=== PATIENT | female | born 1960 | race Caucasian/White ===

== ENCOUNTER 2021-04-10 10:59 | Inpatient (IN) ==
[2021-04-10] MEDS ORDERED: SODIUM CHLORIDE 0.9% 1,000 ML IV STA ×2 (12:47→14:59)
[2021-04-10 13:11] LABS: Basophils % 0.3 % (0.0-0.8); Eosinophils # 0.1 10*3/uL (0.0-0.87); Eosinophils % 1.3 % (0.00-10.9); Hematocrit 28.6 VOL% (35.7-47.0); Hemoglobin 8.4 GM/DL (12.0-16.0); Immature Granulocytes % 0.3 %; Immature Granulocytes Absolute 0.02 #; Lymphocytes # 0.3 10*3/uL (1.4-4.0); Lymphocytes % 4.4 % (21.3-54.2); Mean Corpuscular HGB Conc 29.4 GM/DL (32-36); Mean Corpuscular Volume 79.7 FL (87-102); Monocytes % 1.4 % (1.7-12.7); Neutrophils % 92.3 % (38.7-73.9); Platelet Count 243 T/CUMM (130-400); Red Blood Count 3.59 MC/CUMM (3.8-5.5); Red Cell Distribution Width 16.4 % (9.3-17.3); White Blood Count 6.4 T/CUMM (4-12)
[2021-04-10 13:40] LABS: Albumin 3.2 G/DL (3.4-5.0); Bilirubin,Total 1.3 MG/DL (0.20-1.00); Calcium 8.6 MG/DL (8.5-10.1); Osmolality,Calculated 281.7 MOS/KG (273-304); Potassium 3.8 MMOL/L (3.5-5.1); Total Protein 6.5 G/DL (6.4-8.2)
[2021-04-10 14:29] LABS: Bilirubin,Urine Negative (Negative); Blood, Urine Negative (Negative); Glucose,Urine (UA) Negative (Negative); Hyaline Casts,Urine 14 /LPF (0-3); Ketones,Urine Negative (Negative); Nitrite,Urine Negative (Negative); Protein,Urine Negative; RBC,Urine 1 /HPF (0-4); Squamous Epithelial Cell,Urine Occasional /HPF (0-10); Urine Appearance CLEAR (Clear); Urine Color Yellow (Yellow); Urine Specific Gravity 1.015 (1.001-1.035); Urine Urobilinogen < 2.0 EU/DL (<2.0)
[2021-04-10 14:33] LABS: Barbiturates Screen,Urine Positive (Negative); Benzodiazepines Screen,Urine Positive (Negative); Cannabinoid Screen,Urine Negative (Negative); Opiate Screen,Urine Negative (Negative); Phencyclidine Screen,Urine Negative (Negative)
[2021-04-10] MEDS ORDERED: VANCOMYCIN INJ 1,000 MG in SODIUM CHLORIDE 0.9% 250 ML IV STA ×2 (15:01→15:06)
[2021-04-10] MEDS ORDERED: cefTRIAXone 2,000 MG in SODIUM CHLORIDE 0.9% 100 ML IV ONE (15:01)
[2021-04-10] MEDS ORDERED: NOREPINEPHRINE 8 MG in SODIUM CHLORIDE 0.9% 242 ML IV PRN (15:10)
[2021-04-10 15:17] LABS: INR 1.1; PT Patient Result 12.4 SECS (10.5-12.0); Partial Thromboplastin Time 27.4 SECS (23.8-32.1)
[2021-04-10 15:22] LABS: Band Neutrophils 10 % (0-10); Eosinophils 6 % (0-10); Lymphocytes 3 % (20-55); Segmented Neutrophils 81 % (50-85); Total Cells Counted 100
[2021-04-10 15:23] LABS: Hypochromasia 4+; Microcytosis 2+; Platelet Estimate Normal
[2021-04-10] MEDS ORDERED: NOREPINEPHRINE 4 MG/4 ML VIAL IV ONE (15:43)
[2021-04-10] MEDS ORDERED: ALBUTEROL 2.5 MG/3 ML NEB RESP TX PRN (16:00)
[2021-04-10] MEDS ORDERED: ONDANSETRON 4 MG/2 ML VIAL IV PRN (16:00)
[2021-04-10] MEDS ORDERED: MEROPENEM 500 MG in SODIUM CHLORIDE 0.9% 100 ML IV SCH (16:30)
[2021-04-10] MEDS ORDERED: LEVOFLOXACIN INJ 500 MG/100 ML PREMIX IV ONE (16:30)
[2021-04-10] MEDS ORDERED: VANCOMYCIN INJ 500 MG in SODIUM CHLORIDE 0.9% 100 ML IV ONE (18:00)
[2021-04-10] MEDS: FAMOTIDINE 20 MG/2 ML VIAL IV SCH (18:43)
[2021-04-10] MEDS: methylPREDNISolone SOD SUC 40 MG/1 ML VIAL IV SCH (18:44)
[2021-04-10] MEDS: SODIUM CHLORIDE 0.9% 1,000 ML IV SCH (18:46)
[2021-04-10] MEDS: AMPICILLIN INJ 1,000 MG in SODIUM CHLORIDE 0.9% 100 ML IV SCH (19:54)
[2021-04-11] MEDS: methylPREDNISolone SOD SUC 40 MG/1 ML VIAL IV SCH ×4 (00:33→23:58)
[2021-04-11] MEDS ORDERED: VANCOMYCIN INJ 1,250 MG in SODIUM CHLORIDE 0.9% 250 ML IV SCH (01:00)
[2021-04-11] MEDS: AMPICILLIN INJ 1,000 MG in SODIUM CHLORIDE 0.9% 100 ML IV SCH ×2 (01:46→08:24)
[2021-04-11] MEDS ORDERED: cefTRIAXone 2,000 MG in SODIUM CHLORIDE 0.9% 100 ML IV SCH (03:00)
[2021-04-11] MEDS: SODIUM CHLORIDE 0.9% 1,000 ML IV SCH ×2 (03:24→11:24)
[2021-04-11] MEDS: FAMOTIDINE 20 MG/2 ML VIAL IV SCH ×2 (03:31→16:10)
[2021-04-11 04:00] LABS: ABG Base Excess -0.1 MMOL/L (-2.5-2.5); ABG HCO3 24.3 MMOL/L (20-26); ABG PCO2 38.4 MM HG (35-48); ABG TCO2 25.5 MMOL/L (23-27)
[2021-04-11 05:02] LABS: Basophils % 0.1 % (0.0-0.8); Hematocrit 29.1 VOL% (35.7-47.0); Hemoglobin 8.5 GM/DL (12.0-16.0); Immature Granulocytes % 0.4 %; Immature Granulocytes Absolute 0.05 #; Lymphocytes # 0.5 10*3/uL (1.4-4.0); Lymphocytes % 3.5 % (21.3-54.2); Mean Corpuscular HGB Conc 29.2 GM/DL (32-36); Mean Corpuscular Volume 80.2 FL (87-102); Mean Platelet Volume 9.7 FL (9.6-12.0); Platelet Count 253 T/CUMM (130-400); Red Blood Count 3.63 MC/CUMM (3.8-5.5); Red Cell Distribution Width 16.4 % (9.3-17.3); White Blood Count 13.6 T/CUMM (4-12)
[2021-04-11 05:28] LABS: Albumin 2.5 G/DL (3.4-5.0); Calcium 8.1 MG/DL (8.5-10.1); Osmolality,Calculated 287.1 MOS/KG (273-304); Potassium 3.6 MMOL/L (3.5-5.1); Thyroid Stimulating Hormone 0.433 uIU/ml (0.358-3.74)
[2021-04-11 05:34] LABS: Band Neutrophils 7 % (0-10); Hypochromasia 1+; Lymphocytes 5 % (20-55); Microcytosis 1+; Platelet Estimate Adequate; Segmented Neutrophils 88 % (50-85); Total Cells Counted 100
[2021-04-11] MEDS: cefTRIAXone 1,000 MG in SODIUM CHLORIDE 0.9% 100 ML IV SCH (12:28)
[2021-04-11] MEDS: FLUoxetine 20 MG CAPSULE PO SCH (12:28)
[2021-04-11] MEDS ORDERED: VANCOMYCIN INJ 1,000 MG in SODIUM CHLORIDE 0.9% 250 ML IV SCH ×2 (16:00)
[2021-04-11] MEDS: NAPROXEN 500 MG TABLET PO PRN ×2 (16:15→23:57)
[2021-04-11] MEDS ORDERED: LEVOFLOXACIN INJ 250 MG/50 ML PREMIX IV SCH (17:00)
[2021-04-11] MEDS: NORTRIPTYLINE 25 MG CAPSULE PO SCH (21:28)
[2021-04-11] MEDS: PREGABALIN 50 MG CAPSULE PO SCH (21:29)
[2021-04-11] MEDS: NABUMETONE 750 MG TABLET PO SCH (21:30)
[2021-04-11] MEDS: PRAMIPEXOLE 0.25 MG TABLET PO SCH (21:30)
[2021-04-11] MEDS ORDERED: NABUMETONE 500 MG TABLET PO SCH (21:30)
[2021-04-12] MEDS: cefTRIAXone 1,000 MG in SODIUM CHLORIDE 0.9% 100 ML IV SCH ×3 (00:12→23:23)
[2021-04-12] MEDS: FAMOTIDINE 20 MG/2 ML VIAL IV SCH ×2 (04:15→16:30)
[2021-04-12] MEDS: POTASSIUM CHLORIDE 10 MEQ TABLET PO SCH (08:34)
[2021-04-12] MEDS: FLUoxetine 20 MG CAPSULE PO SCH (08:35)
[2021-04-12] MEDS: FUROSEMIDE 40 MG TABLET PO SCH (08:35)
[2021-04-12] MEDS: PREGABALIN 50 MG CAPSULE PO SCH ×2 (08:35→23:16)
[2021-04-12] MEDS: CYANOCOBALAMIN 500 MCG TABLET PO SCH (08:35)
[2021-04-12] MEDS: methylPREDNISolone SOD SUC 40 MG/1 ML VIAL IV SCH ×2 (08:37→23:23)
[2021-04-12 08:53] LABS: Basophils % 0.1 % (0.0-0.8); Hematocrit 31.2 VOL% (35.7-47.0); Hemoglobin 9.2 GM/DL (12.0-16.0); Immature Granulocytes % 0.8 %; Immature Granulocytes Absolute 0.11 #; Lymphocytes % 6.8 % (21.3-54.2); Mean Corpuscular HGB Conc 29.5 GM/DL (32-36); Monocytes % 1.1 % (1.7-12.7); Neutrophils % 91.2 % (38.7-73.9); Platelet Count 318 T/CUMM (130-400); Red Blood Count 3.95 MC/CUMM (3.8-5.5); Red Cell Distribution Width 16.2 % (9.3-17.3); White Blood Count 14.2 T/CUMM (4-12)
[2021-04-12] MEDS ORDERED: amLODIPine 5 MG TABLET PO SCH (09:00)
[2021-04-12] MEDS: NABUMETONE 750 MG TABLET PO SCH (09:08)
[2021-04-12 09:13] LABS: Calcium 9.3 MG/DL (8.5-10.1); Hypochromasia 1+; Lymphocytes 2 % (20-55); Microcytosis 1+; Osmolality,Calculated 292.8 MOS/KG (273-304); Platelet Estimate Adequate; Potassium 3.7 MMOL/L (3.5-5.1); Segmented Neutrophils 95 % (50-85); Total Cells Counted 100
[2021-04-12] MEDS: atenoloL 50 MG TABLET PO SCH (14:28)
[2021-04-12] MEDS ORDERED: hydrALAZINE 20 MG/1 ML VIAL IV PRN (16:53)
[2021-04-12] MEDS: NABUMETONE 750MG PO SCH (23:11)
[2021-04-12] MEDS: PRAMIPEXOLE 0.25 MG TABLET PO SCH (23:11)
[2021-04-12] MEDS: NORTRIPTYLINE 25 MG CAPSULE PO SCH (23:15)
[2021-04-13] MEDS: FAMOTIDINE 20 MG/2 ML VIAL IV SCH ×2 (06:04→17:05)
[2021-04-13 06:10] LABS: Basophils % 0.1 % (0.0-0.8); Eosinophils % 0.1 % (0.00-10.9); Hematocrit 25.8 VOL% (35.7-47.0); Hemoglobin 7.7 GM/DL (12.0-16.0); Immature Granulocytes % 1.6 %; Immature Granulocytes Absolute 0.16 #; Lymphocytes # 0.9 10*3/uL (1.4-4.0); Lymphocytes % 8.9 % (21.3-54.2); Mean Corpuscular HGB Conc 29.8 GM/DL (32-36); Mean Corpuscular Volume 78.4 FL (87-102); Monocytes % 1.9 % (1.7-12.7); NRBC # 0.02 10*3/uL; Neutrophils % 87.4 % (38.7-73.9); Platelet Count 319 T/CUMM (130-400); Red Blood Count 3.29 MC/CUMM (3.8-5.5); Red Cell Distribution Width 16.3 % (9.3-17.3); White Blood Count 10.2 T/CUMM (4-12)
[2021-04-13 06:36] LABS: Calcium 8.5 MG/DL (8.5-10.1); Osmolality,Calculated 291.8 MOS/KG (273-304); Potassium 3.8 MMOL/L (3.5-5.1)
[2021-04-13] MEDS ORDERED: amLODIPine 5 MG TABLET PO SCH (09:00)
[2021-04-13] MEDS: CYANOCOBALAMIN 500 MCG TABLET PO SCH (09:38)
[2021-04-13] MEDS: POTASSIUM CHLORIDE 10 MEQ TABLET PO SCH (09:39)
[2021-04-13] MEDS: atenoloL 50 MG TABLET PO SCH (09:39)
[2021-04-13] MEDS: PREGABALIN 50 MG CAPSULE PO SCH ×2 (09:39→23:07)
[2021-04-13] MEDS: FUROSEMIDE 40 MG TABLET PO SCH (09:39)
[2021-04-13] MEDS: methylPREDNISolone SOD SUC 40 MG/1 ML VIAL IV SCH (09:40)
[2021-04-13] MEDS: NABUMETONE 750MG PO SCH ×2 (09:40→22:48)
[2021-04-13] MEDS: FLUoxetine 20 MG CAPSULE PO SCH (09:50)
[2021-04-13] MEDS: cefTRIAXone 1,000 MG in SODIUM CHLORIDE 0.9% 100 ML IV SCH ×2 (10:51→22:53)
[2021-04-13] MEDS ORDERED: ACETAMINOPHEN 325 MG TABLET PO PRN ×2 (11:00→13:57)
[2021-04-13] MEDS: amLODIPine 10 MG TABLET PO SCH (11:11)
[2021-04-13 13:55] LABS: Hematocrit 28.6 VOL% (35.7-47.0); Hemoglobin 8.4 GM/DL (12.0-16.0); Immature Granulocytes % 2.1 %; Lymphocytes # 0.8 10*3/uL (1.4-4.0); Lymphocytes % 8.8 % (21.3-54.2); Mean Corpuscular HGB Conc 29.4 GM/DL (32-36); Mean Corpuscular Volume 78.8 FL (87-102); Mean Platelet Volume 9.7 FL (9.6-12.0); Monocytes % 1.6 % (1.7-12.7); NRBC # 0.02 10*3/uL; Neutrophils % 87.5 % (38.7-73.9); Platelet Count 336 T/CUMM (130-400); Red Blood Count 3.63 MC/CUMM (3.8-5.5); Red Cell Distribution Width 16.3 % (9.3-17.3); White Blood Count 9.6 T/CUMM (4-12)
[2021-04-13 14:13] LABS: % Iron Saturation 7.6 % (18-50); Ferritin 48.7 ng/mL (8-252)
[2021-04-13 14:23] LABS: Folate 6.07 NG/ML (5.38-24.0); Vitamin B12 1578 PG/ML (211-911)
[2021-04-13 15:04] LABS: Sedimentation Rate-Westergren 88 MM/HR (0-30)
[2021-04-13] MEDS: PRAMIPEXOLE 0.25 MG TABLET PO SCH (22:48)
[2021-04-13] MEDS: NORTRIPTYLINE 25 MG CAPSULE PO SCH (22:48)
[2021-04-14] MEDS: FAMOTIDINE 20 MG/2 ML VIAL IV SCH ×2 (05:14→17:42)
[2021-04-14 05:16] LABS: Basophils % 0.2 % (0.0-0.8); Eosinophils % 0.4 % (0.00-10.9); Hematocrit 25.2 VOL% (35.7-47.0); Hemoglobin 7.4 GM/DL (12.0-16.0); Immature Granulocytes % 2.7 %; Immature Granulocytes Absolute 0.23 #; Lymphocytes # 2.2 10*3/uL (1.4-4.0); Lymphocytes % 26.4 % (21.3-54.2); Mean Corpuscular HGB Conc 29.4 GM/DL (32-36); Mean Corpuscular Volume 78.3 FL (87-102); Mean Platelet Volume 9.8 FL (9.6-12.0); Monocytes % 4.9 % (1.7-12.7); NRBC # 0.02 10*3/uL; Neutrophils % 65.4 % (38.7-73.9); Platelet Count 321 T/CUMM (130-400); Red Blood Count 3.22 MC/CUMM (3.8-5.5); Red Cell Distribution Width 16.1 % (9.3-17.3); White Blood Count 8.5 T/CUMM (4-12)
[2021-04-14 05:34] LABS: Calcium 8.1 MG/DL (8.5-10.1); Osmolality,Calculated 290.8 MOS/KG (273-304); Potassium 3.3 MMOL/L (3.5-5.1)
[2021-04-14] MEDS ORDERED: MAGNESIUM SULF RIDER 4 GM/100 ML PREMIX IV PRN (08:00)
[2021-04-14] MEDS ORDERED: MAGNESIUM SULF RIDER 2 GM/50 ML PREMIX IV PRN (08:00)
[2021-04-14] MEDS ORDERED: methylPREDNISolone SOD SUC 40 MG/1 ML VIAL IV SCH (09:00)
[2021-04-14] MEDS: POTASSIUM CHLORIDE 20 MEQ TABLET PO PRN ×3 (09:13→19:13)
[2021-04-14] MEDS: FUROSEMIDE 40 MG TABLET PO SCH (09:14)
[2021-04-14] MEDS: NABUMETONE 750MG PO SCH ×2 (09:14→21:38)
[2021-04-14] MEDS: atenoloL 50 MG TABLET PO SCH (09:14)
[2021-04-14] MEDS: CYANOCOBALAMIN 500 MCG TABLET PO SCH (09:14)
[2021-04-14] MEDS: PREGABALIN 50 MG CAPSULE PO SCH ×2 (09:14→21:38)
[2021-04-14] MEDS: amLODIPine 10 MG TABLET PO SCH (09:14)
[2021-04-14] MEDS ORDERED: SODIUM CHLORIDE 0.9% 1,000 ML IV PRN (09:57)
[2021-04-14 10:02] LABS: Hemoglobin A1 (Alkaline) 98.6 % (96.5-98.5); Hemoglobin A2 (Alkaline) 1.4 % (1.5-3.5)
[2021-04-14] MEDS: FERROUS SULFATE 325 MG TABLET PO SCH ×2 (16:13→21:38)
[2021-04-14] MEDS: cefTRIAXone 1,000 MG in SODIUM CHLORIDE 0.9% 100 ML IV SCH (16:13)
[2021-04-14] MEDS: predniSONE 20 MG TABLET PO SCH (16:13)
[2021-04-14] MEDS: FLUoxetine 20 MG CAPSULE PO SCH (16:18)
[2021-04-14] MEDS: NORTRIPTYLINE 25 MG CAPSULE PO SCH (21:38)
[2021-04-14] MEDS: PRAMIPEXOLE 0.25 MG TABLET PO SCH (21:38)
[2021-04-15] MEDS: cefTRIAXone 1,000 MG in SODIUM CHLORIDE 0.9% 100 ML IV SCH ×2 (02:19→11:29)
[2021-04-15] MEDS: FAMOTIDINE 20 MG/2 ML VIAL IV SCH (05:21)
[2021-04-15 06:17] LABS: Basophils % 0.3 % (0.0-0.8); Eosinophils % 0.3 % (0.00-10.9); Hematocrit 31.4 VOL% (35.7-47.0); Immature Granulocytes % 6.6 %; Lymphocytes # 2.1 10*3/uL (1.4-4.0); Lymphocytes % 19.8 % (21.3-54.2); Mean Corpuscular HGB Conc 30.6 GM/DL (32-36); Mean Corpuscular Volume 78.9 FL (87-102); Mean Platelet Volume 10.4 FL (9.6-12.0); Monocytes % 4.6 % (1.7-12.7); NRBC # 0.07 10*3/uL; Neutrophils % 68.4 % (38.7-73.9); Platelet Count 331 T/CUMM (130-400); White Blood Count 10.6 T/CUMM (4-12)
[2021-04-15 06:28] LABS: Hemoglobin 9.6 GM/DL (12.0-16.0); Red Blood Count 3.98 MC/CUMM (3.8-5.5)
[2021-04-15 06:31] LABS: Calcium 8.7 MG/DL (8.5-10.1); Osmolality,Calculated 280.5 MOS/KG (273-304); Potassium 4.6 MMOL/L (3.5-5.1)
[2021-04-15 06:46] LABS: Eosinophils 2 % (0-10); Hypochromasia 1+; Lymphocytes 26 % (20-55); Microcytosis 1+; Nucleated Red Blood Cells 1 (0-5); Platelet Estimate Adequate; Segmented Neutrophils 66 % (50-85); Total Cells Counted 100
[2021-04-15] MEDS: predniSONE 20 MG TABLET PO SCH (08:52)
[2021-04-15] MEDS: FERROUS SULFATE 325 MG TABLET PO SCH (08:53)
[2021-04-15] MEDS: PREGABALIN 50 MG CAPSULE PO SCH (08:53)
[2021-04-15] MEDS: CYANOCOBALAMIN 500 MCG TABLET PO SCH (08:53)
[2021-04-15] MEDS: POTASSIUM CHLORIDE 20 MEQ TABLET PO PRN (08:53)
[2021-04-15] MEDS: atenoloL 50 MG TABLET PO SCH (08:53)
[2021-04-15] MEDS: FUROSEMIDE 40 MG TABLET PO SCH (08:53)
[2021-04-15] MEDS: POTASSIUM CHLORIDE 10 MEQ TABLET PO SCH (08:56)
[2021-04-15] MEDS: NABUMETONE 750MG PO SCH (08:56)
[2021-04-15] MEDS ORDERED: LISINOPRIL/HCTZ 20-12.5 MG TABLET PO SCH (09:00)
[2021-04-15] MEDS ORDERED: amLODIPine 5 MG TABLET PO SCH (09:00)
[2021-04-15] MEDS: FLUoxetine 20 MG CAPSULE PO SCH (10:43)
[2021-04-15] MEDS ORDERED: amLODIPine 5 MG TABLET PO ONE (13:23)
[2021-04-15 13:38] VITALS: BP 138/77
== END 2021-04-15 14:10 | disposition home or self-care (01) | DRG 871 ==
LOC: N.ED 10:59 → SUATTDRO 16:00 → N.EDINP 16:00 → N.CC 17:15 → N.TELEN 04-12 17:45
PROVIDERS: ADMIT Internal Medicine; ATTEND Internal Medicine

== ENCOUNTER 2021-04-29 12:29 | Inpatient (IN) ==
[2021-04-29] MEDS ORDERED: SODIUM CHLORIDE 0.9% 1,000 ML IV STA ×2 (12:51→14:31)
[2021-04-29 13:10] LABS: Basophils % 0.2 % (0.0-0.8); Eosinophils # 0.2 10*3/uL (0.0-0.87); Eosinophils % 1.6 % (0.00-10.9); Hematocrit 34.7 VOL% (35.7-47.0); Hemoglobin 10.6 GM/DL (12.0-16.0); Immature Granulocytes % 0.4 %; Immature Granulocytes Absolute 0.06 #; Lymphocytes # 1.4 10*3/uL (1.4-4.0); Lymphocytes % 10.4 % (21.3-54.2); Mean Corpuscular HGB Conc 30.5 GM/DL (32-36); Mean Platelet Volume 9.4 FL (9.6-12.0); Monocytes % 2.8 % (1.7-12.7); Neutrophils % 84.6 % (38.7-73.9); Platelet Count 356 T/CUMM (130-400); Red Blood Count 4.23 MC/CUMM (3.8-5.5); Red Cell Distribution Width 20.5 % (9.3-17.3); White Blood Count 13.4 T/CUMM (4-12)
[2021-04-29 13:33] LABS: Alanine Aminotransferase 42 U/L (13-56); Albumin 3.2 G/DL (3.4-5.0); Alkaline Phosphatase 85 U/L (45-117); Aspartate Amino Transferase 86 U/L (0-37); Band Neutrophils 7 % (0-10); Blood Urea Nitrogen 42 MG/DL (7-18); Calcium 9.1 MG/DL (8.5-10.1); Carbon Dioxide 25 MMOL/L (21-32); Estimated Glom Filtration Rate 20 ML/MIN; Glucose 133 MG/DL (74-106); Lymphocytes 8 % (20-55); Osmolality,Calculated 282.1 MOS/KG (273-304); Potassium 3.7 MMOL/L (3.5-5.1); Segmented Neutrophils 84 % (50-85); Sodium 135 MMOL/L (136-145); Total Cells Counted 100; Total Protein 6.4 G/DL (6.4-8.2)
[2021-04-29 13:34] LABS: Anisocytosis 1+; Hypochromia Slight; Macrocytosis Slight; Microcytosis 1+; Platelet Estimate Normal; Polychromasia Slight
[2021-04-29] MEDS ORDERED: ACETAMINOPHEN 325 MG TABLET PO PRN (14:31)
[2021-04-29] MEDS ORDERED: DEXTROSE 50% 25 GM/50 ML SYRINGE IV PRN (14:31)
[2021-04-29] MEDS ORDERED: ONDANSETRON 4 MG/2 ML VIAL IV PRN (14:31)
[2021-04-29] MEDS ORDERED: GLUCAGON 1 MG VIAL IM PRN (14:31)
[2021-04-29] MEDS: SODIUM CHLORIDE 0.9% 1,000 ML IV SCH (17:55)
[2021-04-29] MEDS: ENOXAPARIN 30 MG/0.3 ML SYRINGE SUBCUT SCH (17:55)
[2021-04-29 18:19] LABS: Bilirubin,Urine Negative (Negative); Blood, Urine Negative (Negative); Glucose,Urine (UA) Negative (Negative); Hyaline Casts,Urine 34 /LPF (0-3); Ketones,Urine Negative (Negative); Mucus,Urine Occasional /LPF (Occasional); Nitrite,Urine Negative (Negative); Protein,Urine Negative; RBC,Urine 1 /HPF (0-4); Squamous Epithelial Cell,Urine Occasional /HPF (0-10); Urine Appearance Slightly Hazy (Clear); Urine Color Yellow (Yellow); Urine Specific Gravity 1.009 (1.001-1.035); Urine Urobilinogen < 2.0 EU/DL (<2.0)
[2021-04-29 18:34] LABS: Barbiturates Screen,Urine Positive (Negative); Benzodiazepines Screen,Urine Positive (Negative); Cannabinoid Screen,Urine Negative (Negative); Opiate Screen,Urine Positive (Negative); Phencyclidine Screen,Urine Negative (Negative)
[2021-04-29] MEDS ORDERED: NABUMETONE 750 MG TABLET PO SCH (22:00)
[2021-04-29] MEDS ORDERED: clonazePAM 0.5 MG TABLET PO PRN (22:04)
[2021-04-29] MEDS ORDERED: NABUMETONE 500 MG TABLET PO ONE (22:30)
[2021-04-29] MEDS: NORTRIPTYLINE 25 MG CAPSULE PO SCH (22:36)
[2021-04-29] MEDS: PRAMIPEXOLE 0.25 MG TABLET PO SCH (22:36)
[2021-04-29] MEDS: PREGABALIN 100 MG CAPSULE PO SCH (22:37)
[2021-04-29] MEDS: TEMAZEPAM 15 MG CAPSULE PO SCH (22:37)
[2021-04-30] MEDS: SODIUM CHLORIDE 0.9% 1,000 ML IV SCH ×2 (00:32→09:53)
[2021-04-30 07:43] LABS: Basophils % 0.3 % (0.0-0.8); Eosinophils # 0.2 10*3/uL (0.0-0.87); Eosinophils % 3.8 % (0.00-10.9); Hematocrit 31.1 VOL% (35.7-47.0); Hemoglobin 9.4 GM/DL (12.0-16.0); Immature Granulocytes % 0.7 %; Immature Granulocytes Absolute 0.04 #; Lymphocytes # 1.6 10*3/uL (1.4-4.0); Lymphocytes % 25.9 % (21.3-54.2); Mean Corpuscular HGB Conc 30.2 GM/DL (32-36); Mean Corpuscular Volume 82.7 FL (87-102); Mean Platelet Volume 10.3 FL (9.6-12.0); Monocytes % 4.6 % (1.7-12.7); Neutrophils % 64.7 % (38.7-73.9); Red Blood Count 3.76 MC/CUMM (3.8-5.5); Red Cell Distribution Width 20.3 % (9.3-17.3)
[2021-04-30 07:45] LABS: Platelet Count 281 T/CUMM (130-400); White Blood Count 6.1 T/CUMM (4-12)
[2021-04-30 08:07] LABS: Calcium 8.2 MG/DL (8.5-10.1); Osmolality,Calculated 284.3 MOS/KG (273-304); Potassium 3.4 MMOL/L (3.5-5.1); Thyroid Stimulating Hormone 0.852 uIU/ml (0.358-3.74)
[2021-04-30] MEDS ORDERED: POTASSIUM CHLORIDE 20 MEQ TABLET PO ONE (08:30)
[2021-04-30] MEDS: FLUoxetine 20 MG CAPSULE PO SCH (09:52)
[2021-04-30] MEDS: NABUMETONE 500 MG TABLET PO SCH ×2 (09:52→20:21)
[2021-04-30] MEDS: PREGABALIN 100 MG CAPSULE PO SCH ×2 (09:53→20:20)
[2021-04-30] MEDS ORDERED: IBUPROFEN 600 MG TABLET PO ONE (10:40)
[2021-04-30] MEDS ORDERED: PANTOPRAZOLE 20 MG TABLET PO ONE (15:36)
[2021-04-30] MEDS: ENOXAPARIN 30 MG/0.3 ML SYRINGE SUBCUT SCH (16:08)
[2021-04-30] MEDS ORDERED: oxyCODONE/ACETAMINOPHEN 5-325 MG TABLET PO PRN (18:19)
[2021-04-30] MEDS ORDERED: LISINOPRIL/HCTZ 20-12.5 MG TABLET PO ONE (18:41)
[2021-04-30] MEDS ORDERED: LISINOPRIL/HCTZ 10-12.5 MG TABLET PO ONE (18:43)
[2021-04-30] MEDS: NORTRIPTYLINE 25 MG CAPSULE PO SCH (20:19)
[2021-04-30] MEDS: TEMAZEPAM 15 MG CAPSULE PO SCH (20:20)
[2021-04-30] MEDS: PRAMIPEXOLE 0.25 MG TABLET PO SCH (20:20)
[2021-04-30] MEDS: PANTOPRAZOLE 40 MG TABLET PO SCH (20:21)
[2021-05-01 05:08] LABS: Basophils % 0.4 % (0.0-0.8); Eosinophils # 0.2 10*3/uL (0.0-0.87); Eosinophils % 4.7 % (0.00-10.9); Hematocrit 30.5 VOL% (35.7-47.0); Hemoglobin 9.1 GM/DL (12.0-16.0); Immature Granulocytes % 0.6 %; Immature Granulocytes Absolute 0.03 #; Lymphocytes % 43.9 % (21.3-54.2); Mean Corpuscular HGB Conc 29.8 GM/DL (32-36); Mean Corpuscular Volume 83.8 FL (87-102); Mean Platelet Volume 9.6 FL (9.6-12.0); Monocytes % 6.2 % (1.7-12.7); Neutrophils % 44.2 % (38.7-73.9); Platelet Count 293 T/CUMM (130-400); Red Blood Count 3.64 MC/CUMM (3.8-5.5); Red Cell Distribution Width 20.4 % (9.3-17.3); White Blood Count 4.7 T/CUMM (4-12)
[2021-05-01 05:28] LABS: Calcium 8.4 MG/DL (8.5-10.1); Osmolality,Calculated 284.1 MOS/KG (273-304); Potassium 3.9 MMOL/L (3.5-5.1)
[2021-05-01 05:35] LABS: Folate 4.29 NG/ML (5.38-24.0)
[2021-05-01] MEDS ORDERED: POTASSIUM CHLORIDE 10 MEQ TABLET PO SCH (09:00)
[2021-05-01] MEDS ORDERED: LISINOPRIL/HCTZ 20-12.5 MG TABLET PO SCH (09:00)
[2021-05-01] MEDS ORDERED: FOLIC ACID 1 MG TABLET PO SCH (09:00)
[2021-05-01] MEDS ORDERED: atenoloL 50 MG TABLET PO SCH (09:00)
[2021-05-01] MEDS: SODIUM CHLORIDE 0.9% 1,000 ML IV SCH ×2 (09:04→09:05)
[2021-05-01] MEDS: FLUoxetine 20 MG CAPSULE PO SCH (11:05)
[2021-05-01] MEDS: PANTOPRAZOLE 40 MG TABLET PO SCH (11:06)
[2021-05-01] MEDS: NABUMETONE 500 MG TABLET PO SCH (11:06)
[2021-05-01] MEDS: PREGABALIN 100 MG CAPSULE PO SCH (11:07)
[2021-05-01 12:20] VITALS: BP 150/86
== END 2021-05-01 14:58 | disposition home or self-care (01) | DRG 682 ==
LOC: N.ED 12:29 → SUATTDRO 14:31 → N.TELES 14:31
PROVIDERS: ADMIT Internal Medicine; ATTEND Hospitalist

== ENCOUNTER 2021-05-12 08:15 | Inpatient (IN) ==
[2021-05-12] MEDS ORDERED: MORPHINE 2 MG/1 ML SYRINGE IV STA ×2 (09:09→11:19)
[2021-05-12] MEDS ORDERED: ONDANSETRON 4 MG/2 ML VIAL IV STA (09:09)
[2021-05-12 09:59] LABS: Basophils % 0.2 % (0.0-0.8); Eosinophils # 0.2 10*3/uL (0.0-0.87); Eosinophils % 1.1 % (0.00-10.9); Hematocrit 31.4 VOL% (35.7-47.0); Hemoglobin 9.6 GM/DL (12.0-16.0); Immature Granulocytes % 0.5 %; Immature Granulocytes Absolute 0.07 #; Lymphocytes # 1.1 10*3/uL (1.4-4.0); Mean Corpuscular HGB Conc 30.6 GM/DL (32-36); Mean Platelet Volume 9.3 FL (9.6-12.0); Monocytes % 2.6 % (1.7-12.7); Neutrophils % 87.6 % (38.7-73.9); Platelet Count 224 T/CUMM (130-400); Red Blood Count 3.65 MC/CUMM (3.8-5.5); Red Cell Distribution Width 22.1 % (9.3-17.3); White Blood Count 13.2 T/CUMM (4-12)
[2021-05-12] MEDS ORDERED: cefTRIAXone 1,000 MG in SODIUM CHLORIDE 0.9% 100 ML IV STA (10:05)
[2021-05-12 10:16] LABS: Albumin 2.8 G/DL (3.4-5.0); Bilirubin,Total 0.6 MG/DL (0.20-1.00); Calcium 8.6 MG/DL (8.5-10.1); Osmolality,Calculated 283.1 MOS/KG (273-304); Potassium 3.9 MMOL/L (3.5-5.1); Total Protein 6.5 G/DL (6.4-8.2)
[2021-05-12] MEDS ORDERED: hydrALAZINE 20 MG/1 ML VIAL IV PRN (12:04)
[2021-05-12] MEDS ORDERED: ONDANSETRON 4 MG/2 ML VIAL IV PRN (12:04)
[2021-05-12] MEDS ORDERED: GLUCAGON 1 MG VIAL IM PRN (12:04)
[2021-05-12] MEDS ORDERED: DEXTROSE 50% 25 GM/50 ML SYRINGE IV PRN (12:04)
[2021-05-12] MEDS ORDERED: clonazePAM 0.5 MG TABLET PO PRN (12:40)
[2021-05-12] MEDS: MORPHINE 2 MG/1 ML SYRINGE IV PRN ×2 (16:11→20:55)
[2021-05-12] MEDS: PRAMIPEXOLE 0.25 MG TABLET PO SCH (20:56)
[2021-05-12] MEDS: FERROUS SULFATE 325 MG TABLET PO SCH (20:56)
[2021-05-12] MEDS: TEMAZEPAM 15 MG CAPSULE PO SCH (20:56)
[2021-05-12] MEDS: DOCUSATE SODIUM 100 MG CAPSULE PO SCH (20:56)
[2021-05-12] MEDS: PREGABALIN 75 MG CAPSULE PO SCH (20:56)
[2021-05-13] MEDS: MORPHINE 2 MG/1 ML SYRINGE IV PRN ×2 (04:37→09:45)
[2021-05-13 05:14] LABS: Basophils % 0.2 % (0.0-0.8); Eosinophils # 0.2 10*3/uL (0.0-0.87); Eosinophils % 2.4 % (0.00-10.9); Hematocrit 30.2 VOL% (35.7-47.0); Hemoglobin 9.1 GM/DL (12.0-16.0); Immature Granulocytes % 0.9 %; Immature Granulocytes Absolute 0.08 #; Lymphocytes # 1.3 10*3/uL (1.4-4.0); Lymphocytes % 14.9 % (21.3-54.2); Mean Corpuscular HGB Conc 30.1 GM/DL (32-36); Mean Corpuscular Volume 85.3 FL (87-102); Mean Platelet Volume 9.9 FL (9.6-12.0); Monocytes % 3.8 % (1.7-12.7); Neutrophils % 77.8 % (38.7-73.9); Platelet Count 237 T/CUMM (130-400); Red Blood Count 3.54 MC/CUMM (3.8-5.5); Red Cell Distribution Width 22.3 % (9.3-17.3); White Blood Count 8.4 T/CUMM (4-12)
[2021-05-13 05:43] LABS: Calcium 8.9 MG/DL (8.5-10.1); Osmolality,Calculated 271.8 MOS/KG (273-304); Potassium 3.3 MMOL/L (3.5-5.1)
[2021-05-13] MEDS ORDERED: POTASSIUM CHLORIDE RIDER 10 MEQ/100 ML PREMIX IV PRN (07:33)
[2021-05-13] MEDS ORDERED: POTASSIUM CHLORIDE 20 MEQ TABLET PO ONE (08:00)
[2021-05-13] MEDS ORDERED: ONDANSETRON 4 MG/2 ML VIAL ONE (09:45)
[2021-05-13] MEDS ORDERED: fentaNYL 100 MCG/2 ML VIAL ONE (09:45)
[2021-05-13] MEDS ORDERED: MIDAZOLAM 2 MG/2 ML VIAL ONE (09:45)
[2021-05-13] MEDS ORDERED: LIDOCAINE 2% 5 ML VIAL ONE (09:45)
[2021-05-13] MEDS ORDERED: propofoL 200 MG/20 ML VIAL IV ONE (09:45)
[2021-05-13] MEDS ORDERED: ROCURONIUM 50 MG/5 ML VIAL IV ONE (09:45)
[2021-05-13] MEDS ORDERED: ROPIVACAINE 0.5% 30 ML VIAL ONE (09:46)
[2021-05-13] MEDS ORDERED: LIDOCAINE 1% 5 ML VIAL ONE (09:46)
[2021-05-13] MEDS ORDERED: DEXAMETHASONE 4 MG/1 ML VIAL ONE (09:46)
[2021-05-13] MEDS: FLUoxetine 20 MG CAPSULE PO SCH (09:46)
[2021-05-13] MEDS: FERROUS SULFATE 325 MG TABLET PO SCH ×2 (09:46→21:57)
[2021-05-13] MEDS: PREGABALIN 75 MG CAPSULE PO SCH ×2 (09:47→21:57)
[2021-05-13] MEDS: lisinopriL 20 MG TABLET PO SCH (09:47)
[2021-05-13] MEDS: FOLIC ACID 1 MG TABLET PO SCH (09:47)
[2021-05-13] MEDS: CYANOCOBALAMIN 500 MCG TABLET PO SCH (09:47)
[2021-05-13] MEDS: DOCUSATE SODIUM 100 MG CAPSULE PO SCH ×2 (09:47→21:56)
[2021-05-13] MEDS: FUROSEMIDE 40 MG TABLET PO SCH (09:48)
[2021-05-13] MEDS: atenoloL 50 MG TABLET PO SCH (09:48)
[2021-05-13] MEDS: amLODIPine 5 MG TABLET PO SCH (09:48)
[2021-05-13] MEDS ORDERED: KETAMINE 500 MG/10 ML VIAL ONE (10:25)
[2021-05-13] MEDS ORDERED: LACTATED RINGERS 1,000 ML IV SCH (10:30)
[2021-05-13] MEDS ORDERED: ALBUTEROL 1.25 MG/3 ML NEB RESP TX PRN (10:33)
[2021-05-13] MEDS ORDERED: ceFAZolin 1,000 MG VIAL ONE (11:13)
[2021-05-13] MEDS ORDERED: TEMAZEPAM 7.5 MG CAPSULE PO PRN (12:11)
[2021-05-13] MEDS ORDERED: LACTULOSE 20 GM/30 ML UDCUP PO PRN (12:11)
[2021-05-13] MEDS ORDERED: PROMETHAZINE 25 MG/1 ML VIAL IM PRN (12:11)
[2021-05-13] MEDS ORDERED: diphenhydrAMINE CAP 25 MG CAPSULE PO PRN (12:11)
[2021-05-13] MEDS ORDERED: BISACODYL 10 MG SUPP RECTAL PRN (12:11)
[2021-05-13] MEDS ORDERED: MAGNESIUM HYDROXIDE SUSP 30 ML UDCUP PO PRN (12:11)
[2021-05-13] MEDS ORDERED: MORPHINE 2 MG/1 ML SYRINGE IV PRN ×3 (12:14→12:21)
[2021-05-13] MEDS ORDERED: hydrALAZINE 20 MG/1 ML VIAL ONE (12:34)
[2021-05-13] MEDS ORDERED: SODIUM CHLORIDE 0.9% 100 ML IV ONE ×2 (12:34→16:10)
[2021-05-13] MEDS: ALBUTEROL/IPRATROPIUM 3 ML NEB RESP TX SCH ×2 (14:38→20:27)
[2021-05-13] MEDS: cefTRIAXone 1,000 MG in SODIUM CHLORIDE 0.9% 100 ML IV SCH (16:21)
[2021-05-13] MEDS: AZITHROMYCIN INJ 500 MG in SODIUM CHLORIDE 0.9% 250 ML IV SCH ×2 (18:20→18:21)
[2021-05-13] MEDS ORDERED: DOCUSATE SODIUM 100 MG CAPSULE PO SCH (21:00)
[2021-05-13] MEDS: NORTRIPTYLINE 25 MG CAPSULE PO SCH (21:56)
[2021-05-13] MEDS: PRAMIPEXOLE 0.25 MG TABLET PO SCH (21:56)
[2021-05-13] MEDS: NABUMETONE 500 MG TABLET PO SCH (21:57)
[2021-05-13] MEDS: TEMAZEPAM 15 MG CAPSULE PO SCH (21:57)
[2021-05-13] MEDS: ceFAZolin 2,000 MG/50 ML DUPLEX IV SCH (21:58)
[2021-05-14] MEDS: ALBUTEROL/IPRATROPIUM 3 ML NEB RESP TX SCH ×5 (00:46→22:03)
[2021-05-14] MEDS: ceFAZolin 2,000 MG/50 ML DUPLEX IV SCH (02:31)
[2021-05-14 05:59] LABS: Basophils % 0.1 % (0.0-0.8); Eosinophils % 0.1 % (0.00-10.9); Hematocrit 24.4 VOL% (35.7-47.0); Hemoglobin 7.6 GM/DL (12.0-16.0); Immature Granulocytes % 0.5 %; Immature Granulocytes Absolute 0.04 #; Lymphocytes % 12.4 % (21.3-54.2); Mean Corpuscular HGB Conc 31.1 GM/DL (32-36); Mean Corpuscular Volume 84.4 FL (87-102); Mean Platelet Volume 9.9 FL (9.6-12.0); Monocytes % 6.3 % (1.7-12.7); Neutrophils % 80.6 % (38.7-73.9); Platelet Count 252 T/CUMM (130-400); Red Blood Count 2.89 MC/CUMM (3.8-5.5); Red Cell Distribution Width 22.2 % (9.3-17.3)
[2021-05-14 06:03] LABS: Calcium 8.1 MG/DL (8.5-10.1); Osmolality,Calculated 273.7 MOS/KG (273-304); Potassium 3.3 MMOL/L (3.5-5.1)
[2021-05-14 06:06] LABS: Hypochromia 1+; Lymphocytes 11 % (20-55); Microcytosis 1+; Platelet Estimate Adequate; Segmented Neutrophils 87 % (50-85); Total Cells Counted 100
[2021-05-14] MEDS: FONDAPARINUX 2.5 MG/0.5 ML SYRINGE SUBCUT SCH (06:15)
[2021-05-14] MEDS ORDERED: SODIUM CHLORIDE 0.9% 1,000 ML IV PRN (08:12)
[2021-05-14] MEDS ORDERED: DEXTROSE 10% 250 ML BAG IV PRN (08:30)
[2021-05-14] MEDS: DOCUSATE SODIUM 100 MG CAPSULE PO SCH ×2 (09:01→21:36)
[2021-05-14] MEDS: cefTRIAXone 1,000 MG in SODIUM CHLORIDE 0.9% 100 ML IV SCH (09:01)
[2021-05-14] MEDS: PREGABALIN 75 MG CAPSULE PO SCH ×2 (09:01→21:35)
[2021-05-14] MEDS: NABUMETONE 500 MG TABLET PO SCH ×2 (09:02→21:35)
[2021-05-14] MEDS: POTASSIUM CHLORIDE 20 MEQ TABLET PO SCH ×2 (09:02→16:39)
[2021-05-14] MEDS: FOLIC ACID 1 MG TABLET PO SCH (09:02)
[2021-05-14] MEDS: POTASSIUM CHLORIDE 10 MEQ TABLET PO SCH (09:02)
[2021-05-14] MEDS: FUROSEMIDE 40 MG TABLET PO SCH (09:02)
[2021-05-14] MEDS: FERROUS SULFATE 325 MG TABLET PO SCH ×2 (09:02→21:35)
[2021-05-14] MEDS: FLUoxetine 20 MG CAPSULE PO SCH (09:02)
[2021-05-14] MEDS: CYANOCOBALAMIN 500 MCG TABLET PO SCH (09:02)
[2021-05-14 12:02] LABS: Hematocrit 26.9 VOL% (35.7-47.0); Hemoglobin 8.2 GM/DL (12.0-16.0)
[2021-05-14] MEDS ORDERED: ACETAMINOPHEN 325 MG TABLET PO PRN (12:12)
[2021-05-14 15:29] LABS: Bacteria,Urine Occasional /HPF (Few); Bilirubin,Urine Negative (Negative); Blood, Urine Moderate mg/dL (Negative); Glucose,Urine (UA) Negative (Negative); Hyaline Casts,Urine 32 /LPF (0-3); Ketones,Urine Negative (Negative); Mucus,Urine Occasional /LPF (Occasional); Nitrite,Urine Negative (Negative); Protein,Urine Negative; RBC,Urine 16 /HPF (0-4); Urine Appearance CLEAR (Clear); Urine Color Yellow (Yellow); Urine Urobilinogen < 2.0 EU/DL (<2.0)
[2021-05-14 16:20] LABS: Barbiturates Screen,Urine Negative (Negative); Benzodiazepines Screen,Urine Positive (Negative); Cannabinoid Screen,Urine Negative (Negative); Opiate Screen,Urine Positive (Negative); Phencyclidine Screen,Urine Negative (Negative)
[2021-05-14] MEDS ORDERED: POTASSIUM CHLORIDE 20 MEQ TABLET PO SCH (17:00)
[2021-05-14] MEDS: AZITHROMYCIN INJ 500 MG in SODIUM CHLORIDE 0.9% 250 ML IV SCH (17:44)
[2021-05-14] MEDS: NORTRIPTYLINE 25 MG CAPSULE PO SCH (21:35)
[2021-05-14] MEDS: TEMAZEPAM 15 MG CAPSULE PO SCH (21:36)
[2021-05-14] MEDS: PRAMIPEXOLE 0.25 MG TABLET PO SCH (21:36)
[2021-05-15] MEDS: ALBUTEROL/IPRATROPIUM 3 ML NEB RESP TX SCH ×3 (01:16→13:35)
[2021-05-15 05:12] LABS: Basophils % 0.3 % (0.0-0.8); Eosinophils # 0.3 10*3/uL (0.0-0.87); Eosinophils % 4.4 % (0.00-10.9); Hematocrit 30.2 VOL% (35.7-47.0); Hemoglobin 9.2 GM/DL (12.0-16.0); Immature Granulocytes % 0.5 %; Immature Granulocytes Absolute 0.03 #; Lymphocytes # 1.4 10*3/uL (1.4-4.0); Lymphocytes % 23.5 % (21.3-54.2); Mean Corpuscular HGB Conc 30.5 GM/DL (32-36); Mean Corpuscular Volume 85.1 FL (87-102); Mean Platelet Volume 9.6 FL (9.6-12.0); Monocytes % 6.8 % (1.7-12.7); Neutrophils % 64.5 % (38.7-73.9); Platelet Count 242 T/CUMM (130-400); Red Blood Count 3.55 MC/CUMM (3.8-5.5); Red Cell Distribution Width 20.9 % (9.3-17.3); White Blood Count 6.1 T/CUMM (4-12)
[2021-05-15 05:30] LABS: Calcium 8.7 MG/DL (8.5-10.1); Osmolality,Calculated 279.4 MOS/KG (273-304); Potassium 4.1 MMOL/L (3.5-5.1)
[2021-05-15] MEDS: FONDAPARINUX 2.5 MG/0.5 ML SYRINGE SUBCUT SCH (05:53)
[2021-05-15] MEDS: PREGABALIN 75 MG CAPSULE PO SCH (08:28)
[2021-05-15] MEDS: DOCUSATE SODIUM 100 MG CAPSULE PO SCH (08:29)
[2021-05-15] MEDS: CYANOCOBALAMIN 500 MCG TABLET PO SCH (08:29)
[2021-05-15] MEDS: FUROSEMIDE 40 MG TABLET PO SCH (08:29)
[2021-05-15] MEDS: POTASSIUM CHLORIDE 10 MEQ TABLET PO SCH (08:29)
[2021-05-15] MEDS: NABUMETONE 500 MG TABLET PO SCH (08:29)
[2021-05-15] MEDS: FERROUS SULFATE 325 MG TABLET PO SCH (08:29)
[2021-05-15] MEDS: FOLIC ACID 1 MG TABLET PO SCH (08:30)
[2021-05-15] MEDS: FLUoxetine 20 MG CAPSULE PO SCH (08:30)
[2021-05-15] MEDS: atenoloL 50 MG TABLET PO SCH (08:34)
[2021-05-15] MEDS: amLODIPine 5 MG TABLET PO SCH (08:35)
[2021-05-15] MEDS: cefTRIAXone 1,000 MG in SODIUM CHLORIDE 0.9% 100 ML IV SCH (08:36)
[2021-05-15] MEDS: lisinopriL 20 MG TABLET PO SCH (09:38)
[2021-05-15] MEDS ORDERED: POLYETHYLENE GLYCOL POWDER 17 GM PACK PO SCH (11:30)
[2021-05-15 11:34] VITALS: BP 119/67
[2021-05-15] MEDS ORDERED: AZITHROMYCIN 250 MG TABLET PO SCH (12:00)
== END 2021-05-15 15:05 | DRG 521 ==
LOC: EDUNIT# → N.ED 08:15 → N.EDINP 10:33 → SUATTDRO 10:33 → N.3E 14:27
PROVIDERS: ADMIT Internal Medicine; ATTEND Internal Medicine

== ENCOUNTER 2021-08-13 11:04 | Observation (INO) ==
[2021-08-13 12:23] LABS: Basophils % 0.4 % (0.0-0.8); Eosinophils # 0.2 10*3/uL (0.0-0.87); Eosinophils % 2.7 % (0.00-10.9); Hematocrit 39.2 VOL% (35.7-47.0); Hemoglobin 12.4 GM/DL (12.0-16.0); Immature Granulocytes % 0.4 %; Immature Granulocytes Absolute 0.03 #; Lymphocytes # 1.7 10*3/uL (1.4-4.0); Lymphocytes % 22.4 % (21.3-54.2); Mean Corpuscular HGB Conc 31.6 GM/DL (32-36); Mean Corpuscular Volume 89.7 FL (87-102); Mean Platelet Volume 9.6 FL (9.6-12.0); Monocytes # 0.5 10*3/uL (0.11-0.8); Monocytes % 6.4 % (1.7-12.7); Neutrophils % 67.7 % (38.7-73.9); Platelet Count 313 T/CUMM (130-400); Red Blood Count 4.37 MC/CUMM (3.8-5.5); Red Cell Distribution Width 14.6 % (9.3-17.3); White Blood Count 7.4 T/CUMM (4-12)
[2021-08-13 12:45] LABS: Albumin 3.6 G/DL (3.4-5.0); Bilirubin,Total 0.4 MG/DL (0.20-1.00); Osmolality,Calculated 280.4 MOS/KG (273-304); Potassium 3.7 MMOL/L (3.5-5.1)
[2021-08-13] MEDS ORDERED: ONDANSETRON 4 MG/2 ML VIAL IV PRN (16:04)
[2021-08-13] MEDS ORDERED: DOCUSATE SODIUM 100 MG CAPSULE PO PRN (16:04)
[2021-08-13] MEDS ORDERED: ALBUTEROL 2.5 MG/3 ML NEB RESP TX PRN (16:04)
[2021-08-13] MEDS ORDERED: hydrALAZINE 20 MG/1 ML VIAL IV PRN (16:04)
[2021-08-13] MEDS ORDERED: GLUCAGON 1 MG VIAL IM PRN (16:04)
[2021-08-13] MEDS ORDERED: ACETAMINOPHEN 325 MG TABLET PO PRN (16:04)
[2021-08-13] MEDS ORDERED: DEXTROSE 10% 250 ML BAG IV PRN (16:10)
[2021-08-13 16:20] LABS: RBC,Urine 1 /HPF (0-4)
[2021-08-13 16:21] LABS: Bilirubin,Urine Negative (Negative); Blood, Urine Negative (Negative); Glucose,Urine (UA) Negative (Negative); Ketones,Urine Negative (Negative); Nitrite,Urine Negative (Negative); Protein,Urine Negative (Negative); Urine Appearance Clear (Clear); Urine Color Yellow (Yellow); Urine Specific Gravity 1.015 (1.001-1.035); Urine Urobilinogen 0.2 eU/dL (<2.0)
[2021-08-13 16:22] LABS: Barbiturates Screen,Urine Positive (Negative); Benzodiazepines Screen,Urine Negative (Negative); Cannabinoid Screen,Urine Negative (Negative); Opiate Screen,Urine Negative (Negative); Phencyclidine Screen,Urine Negative (Negative)
[2021-08-13] MEDS ORDERED: ENOXAPARIN 40 MG/0.4 ML SYRINGE SUBCUT SCH (16:30)
[2021-08-13] MEDS ORDERED: NORTRIPTYLINE 25 MG CAPSULE PO ONE (22:00)
[2021-08-13] MEDS ORDERED: TEMAZEPAM 15 MG CAPSULE PO ONE (22:00)
[2021-08-14 05:51] LABS: Basophils % 0.5 % (0.0-0.8); Eosinophils # 0.2 10*3/uL (0.0-0.87); Eosinophils % 3.7 % (0.00-10.9); Hematocrit 36.7 VOL% (35.7-47.0); Hemoglobin 11.4 GM/DL (12.0-16.0); Immature Granulocytes % 0.4 %; Immature Granulocytes Absolute 0.02 #; Lymphocytes # 1.8 10*3/uL (1.4-4.0); Lymphocytes % 30.9 % (21.3-54.2); Mean Corpuscular HGB Conc 31.1 GM/DL (32-36); Mean Platelet Volume 9.9 FL (9.6-12.0); Monocytes # 0.3 10*3/uL (0.11-0.8); Monocytes % 5.8 % (1.7-12.7); Neutrophils % 58.7 % (38.7-73.9); Platelet Count 271 T/CUMM (130-400); Red Blood Count 3.99 MC/CUMM (3.8-5.5); Red Cell Distribution Width 14.6 % (9.3-17.3); White Blood Count 5.7 T/CUMM (4-12)
[2021-08-14 06:05] LABS: Alanine Aminotransferase 17 U/L (13-56); Albumin 2.8 G/DL (3.4-5.0); Alkaline Phosphatase 99 U/L (45-117); Aspartate Amino Transferase 12 U/L (0-37); Bilirubin,Total < 0.39 MG/DL (0.20-1.00); Blood Urea Nitrogen 18 MG/DL (7-18); Calcium 8.4 MG/DL (8.5-10.1); Carbon Dioxide 32 MMOL/L (21-32); Chloride 106 MMOL/L (98-107); Cholesterol 247 MG/DL (50-200); Estimated Glom Filtration Rate 94 ML/MIN; Glucose 141 MG/DL (74-106); HDL Cholesterol 49 MG/DL (40-60); Osmolality,Calculated 282.4 MOS/KG (273-304); Potassium 3.4 MMOL/L (3.5-5.1); Risk Ratio 5.04; Sodium 140 MMOL/L (136-145); Total Protein 6.1 G/DL (6.4-8.2); Triglycerides 441 MG/DL (2-150); VLDL Cholesterol 88.2 MG/DL
[2021-08-14] MEDS ORDERED: clonazePAM 0.5 MG TABLET PO PRN (07:24)
[2021-08-14] MEDS ORDERED: POTASSIUM CHLORIDE 20 MEQ TABLET PO ONE (08:00)
[2021-08-14] MEDS ORDERED: FERROUS SULFATE 325 MG TABLET PO SCH (08:00)
[2021-08-14] MEDS ORDERED: ASPIRIN EC 81 MG TABLET PO SCH (09:00)
[2021-08-14] MEDS ORDERED: atenoloL 50 MG TABLET PO SCH (09:00)
[2021-08-14] MEDS ORDERED: ATORVASTATIN 20 MG TABLET PO SCH (09:00)
[2021-08-14] MEDS ORDERED: FLUoxetine 20 MG CAPSULE PO SCH (09:00)
[2021-08-14] MEDS ORDERED: lisinopriL 20 MG TABLET PO SCH (09:00)
[2021-08-14] MEDS ORDERED: FUROSEMIDE 40 MG TABLET PO SCH (09:00)
[2021-08-14] MEDS ORDERED: CYANOCOBALAMIN 500 MCG TABLET PO SCH (09:00)
[2021-08-14] MEDS ORDERED: PANTOPRAZOLE 40 MG TABLET PO SCH (09:00)
[2021-08-14] MEDS ORDERED: FOLIC ACID 1 MG TABLET PO SCH (09:00)
[2021-08-14] MEDS ORDERED: CALCIUM CARBONATE CHEW 500 MG TABLET PO PRN (11:30)
[2021-08-14 12:36] VITALS: BP 127/64
[2021-08-14] MEDS ORDERED: BUTALBITAL/ACETAMIN/CAFFEINE 50-325-40 MG TABLET PO PRN (14:16)
[2021-08-14] MEDS ORDERED: ROSUVASTATIN 10 MG TABLET PO SCH (21:00)
[2021-08-14] MEDS ORDERED: CHOLECALCIFEROL 5,000 UNIT TABLET PO SCH (21:00)
[2021-08-14] MEDS ORDERED: OMEGA 3 ACID ETHYL ESTERS 1 GM CAPSULE PO SCH (21:00)
[2021-08-15] MEDS ORDERED: TOPIRAMATE 25 MG TABLET PO SCH (09:00)
== END 2021-08-14 15:40 | disposition home or self-care (01) ==
LOC: N.ED 11:04 → N.EDINP 11:04 → N.3E 17:23
PROVIDERS: ADMIT Internal Medicine; ATTEND Internal Medicine